=== PATIENT | female | born 1985 | race Caucasian/White ===

== ENCOUNTER → 2016-09-21 15:12 | Outpatient (CLI) | payer MEDICAID | END | disposition home or self-care (01) | LOC: D.MAMMO 09-18 10:30 → D.US 09-18 11:30 → D.MAMMO 10:15 | DX: N63 Unspecified lump in breast (principal) ==

== ENCOUNTER → 2017-09-26 10:06 | Outpatient (CLI) | payer MEDICAID | END | disposition home or self-care (01) | LOC: D.US 10:06 | DX: R10.11 Right upper quadrant pain (principal) ==